=== PATIENT | female | born 1970 | race Caucasian/White ===

== ENCOUNTER 2020-12-31 12:14 | Emergency (ER) | payer SELFPAY ==
[~2020-12-31] VITALS: Ht 167.7 cm; Wt 102.1 kg
[2020-12-31] MEDS ORDERED: MULT-1136 PO (12:49)
[2020-12-31] MEDS ORDERED: Zinc (12:49)
[2020-12-31] MEDS ORDERED: Cod Liver Oil (12:49)
[2020-12-31] MEDS ORDERED: Vitamin C (12:49)
[2020-12-31] MEDS ORDERED: CLINDAMYCIN 300 MG/2ML (CLEOCIN) VIAL IM STA (13:23)
[2020-12-31] MEDS ORDERED: LIDOCAINE 1% INJ 20 ML 20 ML VIAL INJ ONE (13:30)
[2020-12-31] MEDS ORDERED: CLIN300C12 PO (14:26)
--- NOTE | 2020-12-31 14:30 | ED EENT ---
History of Present Illness General Chief Complaint: Laceration Stated Complaint: NOSE LAC Nursing Triage Note: Pt presents ambulatory to ED reporting sent from [facility] for injury incurred to nose at 1030 this a.m. Pt was holding a sheep while brother shearing and the mat slipped and lacerated patient's nose. Moderate amt dried blood noted at laceration septum with laceration right lateral nare edge also. Pt received a tetanus booster at clinic. Source: patient History of Present Illness Date Seen by Provider: Dec 31, 2020 Time Seen by Provider: 12:16 Initial Comments 50 yo female presenting with laceration to her nose from sheep mat. 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 She had the mat come up and cut into her face. She has a laceration to the septum and the nare on right side. She has a large amount of bleeding as well. She had tried to go to the [place] [facility] and they told her she needed a facial surgeon. She refused to be seen yesterday and stated that she would go to the ER here in [place] if they cannot manage at the [facility]. She presented here to [place] and was refusing to go elsewhere stating that she wanted us to just fix it as best we could. She did get a tetanus booster when she was at [place]. Timing/Duration: abrupt Severity: mild Location: nose Prearrival Treatment: squeezing nostrils, other (Tetanus booster) Associated Symptoms: No change in hearing, No cough, No drooling, No ear drainage; facial pain/swelling; No fever, No malaise, No poor fluid intake, No poor solids intake, No sinus infection, No sore throat, No tooth pain, No voice change Allergies and Home Medications Allergies Coded Allergies: Penicillins (Unverified Adverse Reaction, Severe, Angioedema, 12/31/20) rash and swelling with taking penicillins Home Medications Clindamycin HCl 300 Mg Capsule, 300 MG PO TID Prescribed by: ROBIN HOUSER on 12/31/20 3831 Multivitamin 1 Each Tablet, 1 EACH PO DAILY, (Reported) Last Action: New Order Patient Home Medication List Home Medication List Reviewed: Yes Review of Systems Review of Systems Constitutional: No chills, No fever Eyes: No Symptoms Reported Ears: No Symptoms Reported Nose: see HPI Mouth: no symptoms reported Throat: no symptoms reported Respiratory: no symptoms reported Cardiovascular: no symptoms reported Gastrointestinal: no symptoms reported Musculoskeletal: no symptoms reported Skin: see HPI Neurological: Denies Headache, Denies Numbness, Denies Paresthesia Past Jzkmmib-Zihbvs-Zgfhah Hx Past Med/Social Hx: Reviewed Nursing Past Med/Soc Hx Patient Social History Alcohol Use: Denies Use Smoking Status: Never a Smoker 2nd Hand Smoke Exposure: No Recent Infectious Disease Expo: No Recent Hopitalizations: No Immunizations Up To Date Tetanus Booster (TDap): Less than 5yrs Seasonal Allergies Seasonal Allergies: No Past Medical History Surgeries: No Respiratory: No Cardiac: No Neurological: No Genitourinary: No Gastrointestinal: No Musculoskeletal: No Endocrine: No HEENT: No Cancer: No Psychosocial: No Integumentary: No Blood Disorders: No Physical Exam Vital Signs Vital Signs - First Documented 12/31/20 12:25 Temp 36.8 Pulse 70 Resp 20 B/P (MAP) 174/90 (118) Pulse Ox 97 O2 Delivery Room Air Height, Weight, BMI Height: '" Weight: lbs. oz. kg; 36.00 BMI Method: General Appearance: WD/WN, no apparent distress Eyes: bilateral eye PERRL, bilateral eye EOMI Nose: active bleeding, other (laceration through septum and right nare with ac tive bleeding. Can lift the nose and see cartilage in middle of septum where she has laceration that extends back 1.6 cm) Mouth/Throat: pharynx normal Neck: non-tender, full range of motion, supple, normal inspection Cardiovascular: normal peripheral pulses, regular rate, rhythm Respiratory: chest non-tender, lungs clear Neurologic/Psychiatric: alert, oriented x 3 Skin: warm/dry Procedures/Interventions Wound Location: Nose Wound Length (cm): 3.2 Wound's Depth, Shape: linear, flap, sub Q (through septum down through cartilage as well) Wound Explored: contaminated Irrigated w/ Saline (ccs): 500 Betadine Prep?: Yes Anesthesia: 1% Lidocaine Volume Anesthetic (ccs): 8 Suture: Ethlion Suture Size: 5-0 Number of Sutures: 4 Layer Closure?: 1 Sterile Dressing Applied?: Yes Progress After obtaining verbal consent from the patient the wound was anesthetized with 1% plain lidocaine. Then using normal saline with Betadine prep the wound was irrigated with 500 mils of solution. Using 5-0 Ethilon suture the wound edges were approximated with a total of 4 stitches. The stitches were placed on the external part of the septum and the lower lip as well as on the right nare. The internal laceration of the septum and near have the edges well approximated by tacking down the edges on the outside with these 4 stitches. Bleeding was controlled and patient tolerated procedure well without any immediate complication. She was given an IM dose of clindamycin 300 mg as well as oral prescription for clindamycin. Counseled to continue the antibiotics and management of the wound. Advised to have stitches out in 7 to 10 days or be seen sooner if signs of infection. Advised that there was a large risk for infection since the cartilage was exposed. Progress/Results/Core Measures Results/Orders My Orders Orders - ROBIN HOUSER MD Lidocaine 1% Inj 20 Ml (Xylocaine 1% Inj (12/31/20 13:30) Clindamycin Injection (Cleocin Injection (12/31/20 13:23) Suture Set At Bedside (12/31/20 13:23) Medications Given in ED Current Medications Medications Dose Ordered Sig/Maya Route Start Time Stop Time Status Last Admin Dose Admin Lidocaine HCl 20 ml ONCE ONCE INJ 12/31/20 13:30 12/31/20 13:31 DC 12/31/20 13:33 20 ML Vital Signs/I&O 12/31/20 12/31/20 12:25 14:35 Temp 36.8 36.8 Pulse 70 68 Resp 20 20 B/P (MAP) 174/90 (118) 167/88 (118) Pulse Ox 97 97 O2 Delivery Room Air Room Air Blood Pressure Mean: 118 Progress Progress Note : Progress Note On initial exam of the patient I advised her that with cartilage exposure she was at a greater risk for infection and I thought that going to the OR where she could have better irrigation would lessen her chance of infection. Patient was still reluctant to do that. As I did not have ENT clinical transformation specialist other than for their established patients, I made a call to Dr. Worrell the on-call surgeon at [facility]. He reviewed the images of the nose laceration and called me back stating that he thought the wound could be loosely closed with some external stitches rather than having to go to the operating room. I then counseled the patient again on increased risk of infection and more severe damage and longer treatment needed if it did not do well from today's repair. She still wanted to proceed with closing the wounds here and follow up. Departure Impression Primary Impression: Complex laceration of nose Qualified Codes: S01.21XA - Laceration without foreign body of nose, initial encounter Additional Impression: Laceration of nose with complication Qualified Codes: S01.21XA - Laceration without foreign body of nose, initial encounter Disposition: 01 HOME, SELF-CARE Condition: Stable Departure-Patient Inst. Decision time for Depature: 14:30 Referrals: CHAUNCEY SELBY MD NO,LOCAL PHYSICIAN (PCP) Primary Care Physician [facility] [place]ructions: Laceration Repair With Stitches ED, Wound Care ED Add. Discharge Instructions: Keep wound clean and use soap and water to wash it. Apply antibiotic ointment at least 2-3 times a day and use a Q-Tip to apply ointment in the nose to help keep the wound moist as it is healing along the septum and inside of the nostril. Follow up with clinic or ENT doctor if having complications/problems such as increasing swelling, redness streaking across your face, pus draining from the nose and wounds. Keep your head elevated at least 30-45 degrees for the next few days to help limit swelling and pain. Use ice 15-20 minutes every few hours as needed to help with pain, swelling and bleeding. Ibuprofen and Acetaminophen if needed for pain. Make sure to take the full course of antibiotics by mouth to help try and prevent infection in the wounds on your nose. The stitches should be taken out in 7 to 10 days. This could be done at the local clinic in [place] or return to the Emergency Department. All discharge instructions reviewed with patient and/or family. Voiced und erstanding. Scripts Clindamycin HCl (Clindamycin HCl) 300 Mg Capsule 300 MG PO TID for Nose Laceration for 7 Days, #21 CAP 0 Refills Prov: ROBIN HOUSER MD 12/31/20 Images Mouth/Nose 1 - 3.2 cm total length laceration with 1.6 cm laceration extending back along the septum into cartilage. ROBIN HOUSER MD Dec 31, 2020 14:30
[2020-12-31 14:35] VITALS: BP 167/88
== END 2020-12-31 14:35 | disposition home or self-care (01) ==
LOC: ER FS 12:16
DX: S01.21XA Laceration without foreign body of nose, initial encounter (principal); Z88.0 Allergy status to penicillin; W27.8XXA Contact with other nonpowered hand tool, initial encounter
CPT/HCPCS: 12013

== ENCOUNTER 2021-01-07 14:02 | Emergency (ER) | payer SELFPAY ==
[~2021-01-07] VITALS: Ht 167 cm; Wt 102.1 kg
[~2021-01-07 14:02] MED LIST: CLIN300C12 PO; Cod Liver Oil; MULT-1136 PO; Vitamin C; Zinc
[2021-01-07 14:12] VITALS: BP 178/105
--- NOTE | 2021-01-07 14:37 | ED Suture Removal/Wound Check ---
Suture/Wound Re-check Suture Removal/Wound Recheck : Suture Removal/Wound Recheck: Sutures removed by RN General Appearance: WD/WN, no apparent distress Neuro/Tendon: normal sensation, normal motor functions Skin Exam: normal color, warm/dry Physical Exam Vital Signs Vital Signs - First Documented 01/07/21 14:12 Temp 36.9 Pulse 82 Resp 20 B/P (MAP) 178/105 Pulse Ox 98 O2 Delivery Room Air Capillary Refill : General Appearance: WD/WN, no apparent distress HEENT: other (healing laceration to right nare and septum of nose just above upper lip. No increased redness, drainage, fluctuance, swelling, pain. Wound edges appear to be well approximated and attached) Neurologic/Psychiatric: alert, normal mood/affect, oriented x 3 Skin: normal color, warm/dry Departure Impression Primary Impression: Encounter for removal of sutures Disposition: 01 HOME, SELF-CARE Condition: Stable Departure-Patient Inst. Decision time for Depature: 14:12 Referrals: NO,LOCAL PHYSICIAN (PCP) Primary Care Physician Patient Instructions: SUTURE REMOVAL-UNCOMPLICATED ROBIN HOUSER MD Jan 07, 2021 14:37
== END 2021-01-07 15:00 | disposition home or self-care (01) ==
LOC: EDUNIT# 14:02 → ER FS 14:04
DX: Z48.02 Encounter for removal of sutures (principal)

== ENCOUNTER 2021-02-11 09:53 | Emergency (ER) | payer SELFPAY ==
[~2021-02-11] VITALS: Ht 167.7 cm; Wt 90.3 kg
--- NOTE | 2021-02-11 10:03 | ED General ---
General Stated Complaint: HYPERGLYCEMIA; DIZZINESS History of Present Illness Date Seen by Provider: Feb 11, 2021 Time Seen by Provider: 09:59 Initial Comments 50-year-old female presents with some dizziness/not feeling well for couple days. Patient presented to urgent care where she was found to have a blood sugar over 500 and sent to the ER for further evaluation. Patient reports that she does not have a primary care provider. Patient also indicates that she "will not go into the hospital or be admitted or transferred" patient denies any fevers chills nausea vomiting or other systemic complaints. Patient does not have any known diabetic issues. Patient does not take any medications at this time but also does not see a physician on a normal basis Allergies and Home Medications Allergies Coded Allergies: Penicillins (Unverified Adverse Reaction, Severe, Angioedema, 12/31/20) rash and swelling with taking penicillins Home Medications Clindamycin HCl 300 Mg Capsule, 300 MG PO TID Prescribed by: ROBIN HOUSER on 12/31/20 1426 Metformin HCl 500 Mg Tablet, 500 MG PO BID Prescribed by: LEIDY DUNHAM on 02/11/21 1449 Multivitamin 1 Each Tablet, 1 EACH PO DAILY, (Reported) Nitrofurantoin Macrocrystal 100 Mg Capsule, 100 MG PO BID Prescribed by: LEIDY DUNHAM on 02/11/21 1449 Patient Home Medication List Home Medication List Reviewed: Yes Review of Systems Review of Systems Constitutional: No chills; dizziness; No fever; malaise Respiratory: no symptoms reported Cardiovascular: no symptoms reported Gastrointestinal: no symptoms reported Genitourinary: no symptoms reported Musculoskeletal: no symptoms reported Skin: no symptoms reported Psychiatric/Neurological: No Symptoms Reported Hematologic/Lymphatic: No Symptoms Reported Immunological/Allergic: no symptoms reported Past Qoxqxmp-Qojsoq-Vtuezm Hx Immunizations Up To Date Tetanus Booster (TDap): Less than 5yrs Seasonal Allergies Seasonal Allergies: No Past Medical History Surgeries: No Respiratory: No Cardiac: No Neurological: No Genitourinary: No Gastrointestinal: No Musculoskeletal: No Endocrine: No HEENT: No Cancer: No Psychosocial: No Integumentary: No Blood Disorders: No Physical Exam Vital Signs Vital Signs - First Documented 02/11/21 09:56 Temp 35.6 Pulse 87 Resp 87 B/P (MAP) 132/59 (83) Pulse Ox 96 O2 Delivery Room Air Capillary Refill : Height, Weight, BMI Height: '" Weight: lbs. oz. kg; 36.00 BMI Method:Stated General Appearance: No Apparent Distress, WD/WN HEENT: TMs Normal, Normal ENT Inspection Neck: Supple, Carotid Bruit Respiratory: Lungs Clear, Normal Breath Sounds Cardiovascular: Regular Rate, Rhythm, No Edema Gastrointestinal: Non Tender, Soft Extremity: Normal Range of Motion, Non Tender Neurologic/Psychiatric: Alert, Oriented x3, No Motor/Sensory Deficits, Normal Mood/Affect, bilingual customer service II-XII Norm as Tested Skin: Normal Color, Warm/Dry Procedures/Interventions Suture Size: 5-0 Progress/Results/Core Measures Suspected Sepsis SIRS Temperature: Pulse: Respiratory Rate: Laboratory Tests 02/11/21 10:26: White Blood Count 20.9H Blood Pressure / Mean: Laboratory Tests 02/11/21 10:26: Creatinine 0.95, Platelet Count 286, Total Bilirubin 0.9 02/11/21 14:10: Creatinine 0.83 Results/Orders Lab Results Laboratory Tests Test 02/11/21 10:00 02/11/21 10:26 02/11/21 10:45 02/11/21 14:10 Range/Units Glucometer 529 *H 70-110 MG/DL White Blood Count 20.9 H 4.3-11.0 10^3/uL Red Blood Count 5.52 4.35-5.85 10^6/uL Hemoglobin 15.4 11.5-16.0 G/DL Hematocrit 44 35-52 % Mean Corpuscular Volume 80 80-99 FL Mean Corpuscular Hemoglobin 28 25-34 PG Mean Corpuscular Hemoglobin Concent 36 32-36 G/DL Red Cell Distribution Width 12.9 10.0-14.5 % Platelet Count 286 130-400 10^3/uL Mean Platelet Volume 10.9 H 7.4-10.4 FL Immature Granulocyte % (Auto) 2 % Neutrophils (%) (Auto) 85 H 42-75 % Lymphocytes (%) (Auto) 7 L 12-44 % Monocytes (%) (Auto) 6 0-12 % Eosinophils (%) (Auto) 0 0-10 % Basophils (%) (Auto) 0 0-10 % Neutrophils # (Auto) 17.8 H 1.8-7.8 X 10^3 Lymphocytes # (Auto) 1.4 1.0-4.0 X 10^3 Monocytes # (Auto) 1.3 H 0.0-1.0 X 10^3 Eosinophils # (Auto) 0.0 0.0-0.3 10^3/uL Basophils # (Auto) 0.1 0.0-0.1 10^3/uL Immature Granulocyte # (Auto) 0.3 H 0.0-0.1 10^3/uL Neutrophils % (Manual) 82 % Lymphocytes % (Manual) 7 % Monocytes % (Manual) 4 % Eosinophils % (Manual) 0 % Basophils % (Manual) 0 % Band Neutrophils 5 % Atypical Lymphocytes 2 % Sodium Level 119 *L 125 *L 135-145 MMOL/L Potassium Level 2.6 L 2.6 L 3.6-5.0 MMOL/L Chloride Level 77 L 86 L 98-107 MMOL/L Carbon Dioxide Level 27 26 21-32 MMOL/L Anion Gap 15 H 13 5-14 MMOL/L Blood Urea Nitrogen 13 11 7-18 MG/DL Creatinine 0.95 0.83 0.60-1.30 MG/DL Estimat Glomerular Filtration Rate 63 73 BUN/Creatinine Ratio 14 13 Glucose Level 496 *H 397 H 70-105 MG/DL Calcium Level 8.1 L 7.4 L 8.5-10.1 MG/DL Corrected Calcium 9.3 8.5-10.1 MG/DL Total Bilirubin 0.9 0.1-1.0 MG/DL Aspartate Amino Transf (AST/SGOT) 30 5-34 U/L Alanine Aminotransferase (ALT/SGPT) 50 0-55 U/L Alkaline Phosphatase 240 H 40-136 U/L Total Protein 5.9 L 6.4-8.2 GM/DL Albumin 2.5 L 3.2-4.5 GM/DL Urine Color YELLOW Urine Clarity CLEAR Urine pH 6.0 5-9 Urine Specific [place] <=1.005 1.016-1.022 Urine Protein NEGATIVE NEGATIVE Urine Glucose (UA) 3+ H NEGATIVE Urine Ketones 1+ H NEGATIVE Urine Nitrite NEGATIVE NEGATIVE Urine Bilirubin NEGATIVE NEGATIVE Urine Urobilinogen 0.2 < = 1.0 MG/DL Urine Leukocyte Esterase NEGATIVE NEGATIVE Urine RBC (Auto) NEGATIVE NEGATIVE Urine RBC NONE /HPF Urine WBC 5-10 H /HPF Urine Squamous Epithelial Cells RARE /HPF Urine Crystals NONE /LPF Urine Bacteria FEW H /HPF Urine Casts NONE /LPF Urine Mucus NEGATIVE /LPF Urine Culture Indicated YES My Orders Orders - KARINE DUNHAMR L DO Cbc With Automated Diff (02/11/21 10:04) Comprehensive Metabolic Panel (02/11/21 10:04) Accucheck Stat ONCE (02/11/21 10:04) Hemoglobin A1c (02/11/21 10:04) Beta Hydroxybutyrate (02/11/21 10:04) Ua Culture If Indicated (02/11/21 10:04) Lactated Ringers (Lr 1000 Ml Iv Solution (02/11/21 10:04) Manual Differential (02/11/21 10:26) Ns Iv 1000 Ml (Sodium Chloride 0.9%) (02/11/21 11:15) Urine Culture (02/11/21 10:45) Basic Metabolic Panel (02/11/21 13:51) Vital Signs/I&O 02/11/21 09:56 Temp 35.6 Pulse 87 Resp 87 B/P (MAP) 132/59 (83) Pulse Ox 96 O2 Delivery Room Air Capillary Refill : Progress Note : Progress Note Patient with new onset diabetes. Patient needed hospitalization I discussed this with her however she refused. Patient was then treated with a couple liters of IV fluid in the ER. Patient was feeling significantly better upon discharge. Discussed with the with patient likely be started on insulin however patient would prefer pills. I discussed that she will need to establish care with a primary care provider for long-term management of her diabetes. I will start her on Metformin 500 mg twice daily, gave her diabetic education and diet education. Patient was stable upon discharge. Departure Impression Primary Impression: Hyperglycemia Additional Impressions: Diabetes mellitus, new onset Acute cystitis Qualified Codes: N30.00 - Acute cystitis without hematuria Disposition: HOME, SELF-CARE Condition: Stable Departure-Patient Inst. Referrals: NO,LOCAL PHYSICIAN (PCP/Family) Primary Care Physician Patient Instructions: Urinary Tract Infection, Adult ED, High Blood Sugar, Adult ED, Diabetes Diet Add. Discharge Instructions: Please follow-up with a primary care provider in the next 2 to 3 days to establish care, for diabetic education and to start an diabetic treatment regimen agreed upon between you and your primary care provider Scripts Potassium Chloride (Potassium Chloride) 20 Meq Tablet.er 20 MEQ PO DAILY, #10 TAB Prov: KARINE DUNHAMR L DO 02/11/21 Nitrofurantoin Macrocrystal (Nitrofurantoin) 100 Mg Capsule 100 MG PO BID, #14 CAP 0 Refills Prov: LEIDY DUNHAM DO 02/11/21 Metformin HCl (Metformin HCl) 500 Mg Tablet 500 MG PO BID, #30 TAB Prov: LEIDY DUNHAM DO 02/11/21 LEIDY DUNHAM DO Feb 11, 2021 10:03
[2021-02-11] MEDS ORDERED: LACTATED RINGERS 1,000 ML IV STA (10:04)
[2021-02-11 10:45] LABS: HEMATOCRIT 44 % (35-52); HEMOGLOBIN 15.4 G/DL (11.5-16.0); MEAN CORPUSCULAR HEMOGLOBIN 28 PG (25-34); MEAN CORPUSCULAR VOLUME 80 FL (80-99); WHITE BLOOD COUNT 20.9 10^3/uL (4.3-11.0)
[2021-02-11 10:46] LABS: BASOPHILS % (AUTO) 0 % (0-10); EOSINOPHILS % (AUTO) 0 % (0-10); LYMPHOCYTES % (AUTO) 7 % (12-44); MEAN CORPUSCULAR HGB CONC 36 G/DL (32-36); MEAN PLATELET VOLUME 10.9 FL (7.4-10.4); MONOCYTES % (AUTO) 6 % (0-12); NEUTROPHILS % (AUTO) 85 % (42-75); PLATELET COUNT 286 10^3/uL (130-400)
[2021-02-11 10:47] LABS: BASOPHILS # (AUTO) 0.1 10^3/uL (0.0-0.1); LYMPHOCYTES # (AUTO) 1.4 X 10^3 (1.0-4.0); MONOCYTES # (AUTO) 1.3 X 10^3 (0.0-1.0); NEUTROPHILS # (AUTO) 17.8 X 10^3 (1.8-7.8)
[2021-02-11 11:14] LABS: CREATININE SERUM 0.95 MG/DL (0.60-1.30); POTASSIUM 2.6 MMOL/L (3.6-5.0)
[2021-02-11 11:15] LABS: ALBUMIN 2.5 GM/DL (3.2-4.5); BILIRUBIN,TOTAL 0.9 MG/DL (0.1-1.0); CALCIUM 8.1 MG/DL (8.5-10.1); TOTAL PROTEIN 5.9 GM/DL (6.4-8.2)
[2021-02-11 11:17] LABS: CLARITY,URINE CLEAR; COLOR,URINE YELLOW
[2021-02-11 11:18] LABS: BACTERIA,URINE FEW /HPF; BILIRUBIN,URINE NEGATIVE (NEGATIVE); GLUCOSE, URINE (UA) 3+ (NEGATIVE); KETONES,URINE 1+ (NEGATIVE); LEUKOCYTE ESTERASE ,URINE NEGATIVE (NEGATIVE); NITRITE,URINE NEGATIVE (NEGATIVE); PROTEIN,URINE NEGATIVE (NEGATIVE); SQUAMOUS EPITHELIAL CELL,UR RARE /HPF
[2021-02-11 11:20] LABS: ATYPICAL LYMPHOCYTES 2 %; BAND NEUTROPHILS 5 %; BASOPHILS % (MANUAL) 0 %; EOSINOPHILS % (MANUAL) 0 %; LYMPHOCYTES % (MANUAL) 7 %; MONOCYTES % (MANUAL) 4 %; NEUTROPHILS % (MANUAL) 82 %
[2021-02-11] MEDS: NS IV 1000 ML 1,000 ML IV SCH ×2 (11:36→11:37)
[2021-02-11] MEDS ORDERED: METF-397 PO (14:49)
[2021-02-11] MEDS ORDERED: NITR100C PO (14:49)
[2021-02-11 15:00] LABS: POTASSIUM 2.6 MMOL/L (3.6-5.0)
[2021-02-11 15:01] LABS: CALCIUM 7.4 MG/DL (8.5-10.1); CREATININE SERUM 0.83 MG/DL (0.60-1.30)
[2021-02-11] MEDS ORDERED: POTA-51 PO (15:05)
[2021-02-11 15:08] VITALS: BP 121/67
== END 2021-02-11 15:11 | disposition home or self-care (01) ==
LOC: EDUNIT# 09:53 → ER FS 09:54
DX: E11.65 Type 2 diabetes mellitus with hyperglycemia (principal); N30.00 Acute cystitis without hematuria
CPT/HCPCS: 36415; 80048; 80053; 81000; 82010; 82947; 83036; 85007; 85027; 87077; 87088; 87186

== ENCOUNTER 2021-02-23 09:05 | Emergency (ER) | payer OTHER ==
[~2021-02-23 09:05] MED LIST changes: +METF-397 PO; +NITR100C PO; +POTA-51 PO
[2021-02-23] MEDS ORDERED: LACTATED RINGERS 1,000 ML IV STA (09:22)
[2021-02-23 09:32] LABS: BASOPHILS # (AUTO) 0.1 10^3/uL (0.0-0.1); BASOPHILS % (AUTO) 1 % (0-10); EOSINOPHILS # (AUTO) 0.1 10^3/uL (0.0-0.3); EOSINOPHILS % (AUTO) 1 % (0-10); HEMATOCRIT 42 % (35-52); HEMOGLOBIN 14.4 G/DL (11.5-16.0); LYMPHOCYTES % (AUTO) 33 % (12-44); MEAN CORPUSCULAR HEMOGLOBIN 28 PG (25-34); MEAN CORPUSCULAR HGB CONC 34 G/DL (32-36); MEAN CORPUSCULAR VOLUME 82 FL (80-99); MEAN PLATELET VOLUME 9.1 FL (7.4-10.4); MONOCYTES # (AUTO) 0.6 X 10^3 (0.0-1.0); MONOCYTES % (AUTO) 9 % (0-12); NEUTROPHILS # (AUTO) 3.4 X 10^3 (1.8-7.8); NEUTROPHILS % (AUTO) 55 % (42-75); PLATELET COUNT 387 10^3/uL (130-400)
--- NOTE | 2021-02-23 09:36 | ED General ---
General Stated Complaint: LOW POTASSIUM Source of Information: Patient Exam Limitations: No Limitations History of Present Illness Date Seen by Provider: Feb 23, 2021 Time Seen by Provider: 09:12 Initial Comments 50-year-old female with past medical history of diabetes and hypertension coming in via private vehicle after stating she was told she has low potassium and needs to go to the ER. She states she had a recent ER visit and she was diagnosed with diabetes at that time, and started on Metformin. She saw her PCP and was also started on a blood pressure pill and water pill per the patient. She is unsure of the name of this. She knows she does take potassium daily but ran out of it a couple days ago. She had basic labs drawn yesterday and the results she was told were a potassium of 2.2 and she was referred here. She denies any symptoms related to this including any chest pain, shortness of breath, abdominal pain, nausea, vomiting, diarrhea, fever, chills, weakness, numbness, headache, vision changes, or any other concerns. She is not feeling any palpitations. Allergies and Home Medications Allergies Coded Allergies: Penicillins (Unverified Adverse Reaction, Severe, Angioedema, 12/31/20) rash and swelling with taking penicillins Home Medications Clindamycin HCl 300 Mg Capsule, 300 MG PO TID Prescribed by: ROBIN HOUSER on 12/31/20 1426 Metformin HCl 500 Mg Tablet, 500 MG PO BID Prescribed by: LEIDY DUNHAM on 02/11/21 1449 Multivitamin 1 Each Tablet, 1 EACH PO DAILY, (Reported) Nitrofurantoin Macrocrystal 100 Mg Capsule, 100 MG PO BID Prescribed by: LEIDY DUNHAM on 02/11/21 1449 Potassium Chloride 20 Meq Tablet.er, 20 MEQ PO DAILY Prescribed by: LEIDY DUNHAM on 02/11/21 1505 Potassium Chloride 20 Meq Tablet.er, 20 MEQ PO BID Prescribed by: RUTHIE BANKS on 02/23/21 1258 Patient Home Medication List Home Medication List Reviewed: Yes Review of Systems Review of Systems Constitutional: No fever EENTM: No blurred vision Respiratory: No cough, No short of breath Cardiovascular: No chest pain Gastrointestinal: No abdominal pain, No diarrhea, No nausea, No vomiting Genitourinary: No dysuria : No Musculoskeletal: No back pain, No muscle weakness Skin: No rash Psychiatric/Neurological: Denies Anxiety, Denies Depressed Hematologic/Lymphatic: No Symptoms Reported Immunological/Allergic: no symptoms reported All Other Systems Reviewed Negative Unless Noted: Yes Past Qymvoxl-Nynxqd-Dqlhjo Hx Patient Social History Tobacco Use?: No Substance use?: No Alcohol Use?: No Immunizations Up To Date Tetanus Booster (TDap): Less than 5yrs Seasonal Allergies Seasonal Allergies: No Past Medical History Surgeries: No Respiratory: No Cardiac: No Neurological: No [employer] History: Menopausal Genitourinary: No Gastrointestinal: No Musculoskeletal: No Endocrine: No HEENT: No Cancer: No Psychosocial: No Integumentary: No Blood Disorders: No Family Medical History No Pertinent Family Hx Physical Exam Vital Signs Vital Signs - First Documented 02/23/21 09:09 Temp 36.0 Pulse 86 Resp 16 B/P (MAP) 119/76 (90) Pulse Ox 98 O2 Delivery Room Air Capillary Refill : Height, Weight, BMI Height: '" Weight: lbs. oz. kg; 32.00 BMI Method:Stated General Appearance: No Apparent Distress, WD/WN HEENT: PERRL/EOMI, Normal ENT Inspection, Pharynx Normal Neck: Full Range of Motion, Normal Inspection, Non Tender, Supple Respiratory: Chest Non Tender, Lungs Clear, Normal Breath Sounds, No Accessory Muscle Use, No Respiratory Distress Cardiovascular: Regular Rate, Rhythm, Normal Peripheral Pulses Gastrointestinal: Normal Bowel Sounds, Non Tender, Soft; No Distended, No Guarding Back: Normal Inspection Extremity: Normal Capillary Refill, Normal Inspection, Normal Range of Motion, Non Tender, No Calf Tenderness, Pedal Edema Neurologic/Psychiatric: Alert, No Motor/Sensory Deficits, Normal Mood/Affect Skin: Normal Color, Warm/Dry Lymphatic: No Adenopathy Procedures/Interventions Suture Size: 5-0 Progress/Results/Core Measures Suspected Sepsis SIRS Temperature: Pulse: Respiratory Rate: Laboratory Tests 02/23/21 09:21: White Blood Count 6.0 Blood Pressure / Mean: Laboratory Tests 02/23/21 09:21: Creatinine 0.78, Platelet Count 387, Total Bilirubin 0.4 Results/Orders Lab Results Laboratory Tests Test 02/23/21 09:21 Range/Units White Blood Count 6.0 4.3-11.0 10^3/uL Red Blood Count 5.10 4.35-5.85 10^6/uL Hemoglobin 14.4 11.5-16.0 G/DL Hematocrit 42 35-52 % Mean Corpuscular Volume 82 80-99 FL Mean Corpuscular Hemoglobin 28 25-34 PG Mean Corpuscular Hemoglobin Concent 34 32-36 G/DL Red Cell Distribution Width 13.6 10.0-14.5 % Platelet Count 387 130-400 10^3/uL Mean Platelet Volume 9.1 7.4-10.4 FL Immature Granulocyte % (Auto) 0 % Neutrophils (%) (Auto) 55 42-75 % Lymphocytes (%) (Auto) 33 12-44 % Monocytes (%) (Auto) 9 0-12 % Eosinophils (%) (Auto) 1 0-10 % Basophils (%) (Auto) 1 0-10 % Neutrophils # (Auto) 3.4 1.8-7.8 X 10^3 Lymphocytes # (Auto) 2.0 1.0-4.0 X 10^3 Monocytes # (Auto) 0.6 0.0-1.0 X 10^3 Eosinophils # (Auto) 0.1 0.0-0.3 10^3/uL Basophils # (Auto) 0.1 0.0-0.1 10^3/uL Immature Granulocyte # (Auto) 0.0 0.0-0.1 10^3/uL Sodium Level 135 135-145 MMOL/L Potassium Level 2.3 *L 3.6-5.0 MMOL/L Chloride Level 91 L 98-107 MMOL/L Carbon Dioxide Level 40 H 21-32 MMOL/L Anion Gap 4 L 5-14 MMOL/L Blood Urea Nitrogen 6 L 7-18 MG/DL Creatinine 0.78 0.60-1.30 MG/DL Estimat Glomerular Filtration Rate 79 BUN/Creatinine Ratio 8 Glucose Level 276 H 70-105 MG/DL Calcium Level 8.3 L 8.5-10.1 MG/DL Corrected Calcium 9.0 8.5-10.1 MG/DL Magnesium Level 1.8 1.6-2.4 MG/DL Total Bilirubin 0.4 0.1-1.0 MG/DL Aspartate Amino Transf (AST/SGOT) 26 5-34 U/L Alanine Aminotransferase (ALT/SGPT) 31 0-55 U/L Alkaline Phosphatase 139 H 40-136 U/L Total Protein 5.9 L 6.4-8.2 GM/DL Albumin 3.1 L 3.2-4.5 GM/DL My Orders Orders - RUTHIE BANKS MD Cbc With Automated Diff (02/23/21 09:22) Comprehensive Metabolic Panel (02/23/21 09:22) Magnesium (02/23/21 09:22) Ed Iv/Invasive Line Start (02/23/21 09:22) Ekg Tracing (02/23/21 09:22) Monitor-Rhythm Ecg Trace Only (02/23/21:22) Magnesium 1 Gm/100 Ml Ivpb (Magnesium [place] (02/23/21 09:30) Potassium Cl 10meq/50ml Ivpb (Kcl 10 Meq (02/23/21 09:30) Lactated Ringers (Lr 1000 Ml Iv Solution (02/23/21 09:22) Potassium Chloride (Tablet) (K Dur Table (02/23/21 09:56) Potassium Chloride (Tablet) (K Dur Table (02/23/21 12:15) Ekg Tracing (02/23/21 13:10) Medications Given in ED Current Medications Medications Dose Ordered Sig/Maya Route Start Time Stop Time Status Last Admin Dose Admin Potassium Chloride 40 meq ONCE ONCE PO 02/23/21 12:15 02/23/21 12:16 DC 02/23/21 12:20 40 MEQ Vital Signs/I&O 02/23/21 09:09 Temp 36.0 Pulse 86 Resp 16 B/P (MAP) 119/76 (90) Pulse Ox 98 O2 Delivery Room Air Capillary Refill : Progress Note : Progress Note 50-year-old female with above history coming in due to hypokalemia. ABCs were intact and vitals were stable on presentation. EKG with multiple PVCs which is likely related to her significant hypokalemia. She also has flattening of her T waves which are also consistent with hypokalemia. QTC however is appropriate at 434. An IV was placed and she was started on potassium and magnesium supplementation. We will get a repeat of her potassium level to know exactly how much to give her. We will mix both IV and oral once we know her number. She is completely asymptomatic otherwise, and her hypokalemia fits the picture of her starting on a new medication and running out of her potassium supple mentation. I do not believe there is anything more insidious to cause this at this time. We called her pharmacy and confirmed the new medicines she is on are HCTZ 12.5mg daily and lisinopril 25mg daily. The new HCTZ is the obvious culprit of her hypokalemia. Her potassium was 2.6 during her last emergency department visit prior to starting the HCTZ, and at that time she was started on 20 mEq of potassium supplementation daily. Given that she was low prior to being on the diuretic, I suspect she will need to double this dose for a while. I discussed this with the patient and said she should double it until she has follow-up with her PCP which she said is next week. Potassium here came back at 2.3. She was given 40 mill equivalents of IV potassium supplementation, 2 g of IV magnesium, and 100 mill equivalents of potassium supplementation oral divided over 2 doses during her stay. During that time I frequently rechecked her and on the monitor she started out in trigeminy when she got here, and towards the end of her stay she had no more PVCs. Repeat EKG then obtained, and appears significantly better with now no ectopy. Clinically her severe hypokalemia has improved given her rhythm improvements. I believe she is stable for discharge. She was sent home with strict return precautions. I discussed with the patient that she needs a repeat BMP in 2 days, and she needs to follow-up with her PCP within the next couple days as well. She confirms this. ECG Initial ECG Impression Date: Feb 23, 2021 Initial ECG Impression Time: 09:27 Initial ECG Rate: 65 Comment Normal sinus rhythm with a rate of 65, narrow QRS, borderline left axis deviation, multiple PVCs with her in trigeminy, QTC 434 EKG : EKG Time: 13:02 Rate: 64 Rhythm: Normal Sinus Comment Normal sinus rhythm with a rate of 64, narrow QRS, borderline left axis deviation, no significant ST changes, T waves are slightly more apparent compared to flattened T waves of the previous EKG, PVCs are now absent Departure Impression Primary Impression: Hypokalemia Additional Impression: PVCs (premature ventricular contractions) Disposition: 01 HOME, SELF-CARE Condition: Stable Departure-Patient Inst. Referrals: ROBY NICE APRN (PCP) Primary Care Physician [facility] (Family) Primary Care Physician Patient Instructions: Hypokalemia (DC) Add. Discharge Instructions: You were seen in the emergency department because your potassium was very low. This is a severe, and potentially life-threatening thing. We did replace your potassium, however you will need to be sure to take your potassium supplements at home as well. To begin taking 40 mEq of potassium starting tomorrow. This can be divided in the morning and evening if you need. Continue to take this regimen until you follow-up with your doctor. I highly recommend you have repeat blood work on Thursday to be sure your potassium continues to trend in the right direction. If you have any chest pain, palpitations like her heart is racing, weakness, or any other concerns and please come back to the emergency department. Scripts Potassium Chloride (Potassium Chloride) 20 Meq Tablet.er 20 MEQ PO BID for 30 Days, #60 TAB 0 Refills Prov: RUTHIE BANKS MD 02/23/21 RUTHIE BANKS MD Feb 23, 2021 09:35
[2021-02-23 09:54] LABS: POTASSIUM 2.3 MMOL/L (3.6-5.0)
[2021-02-23 09:55] LABS: ALBUMIN 3.1 GM/DL (3.2-4.5); BILIRUBIN,TOTAL 0.4 MG/DL (0.1-1.0); CALCIUM 8.3 MG/DL (8.5-10.1); CREATININE SERUM 0.78 MG/DL (0.60-1.30); MAGNESIUM 1.8 MG/DL (1.6-2.4); TOTAL PROTEIN 5.9 GM/DL (6.4-8.2)
[2021-02-23] MEDS: MAGNESIUM 1 GM/100 ML IVPB 100 ML IV SCH ×2 (09:55→10:49)
[2021-02-23] MEDS: POTASSIUM CL 10MEQ/50ML IVPB 50 ML IV SCH ×4 (09:55→12:19)
[2021-02-23] MEDS ORDERED: KCL 20 MEQ TAB (K-DUR) PO STA (09:56)
[2021-02-23] MEDS ORDERED: KCL 20 MEQ TAB (K-DUR) PO ONE (12:15)
[2021-02-23] MEDS ORDERED: POTA-51 PO (12:58)
[2021-02-23 13:19] VITALS: BP 121/72
== END 2021-02-23 13:09 | disposition home or self-care (01) ==
LOC: EDUNIT# 09:05 → ER FS 09:06
DX: E87.6 Hypokalemia (principal); I49.3 Ventricular premature depolarization; I10 Essential (primary) hypertension; E11.9 Type 2 diabetes mellitus without complications; Z79.84 Long term (current) use of oral hypoglycemic drugs
CPT/HCPCS: 36415; 80053; 83735; 85025; 93005; 93041